=== PATIENT | male | born 1980 | race African-American/Black ===

== ENCOUNTER 2016-10-03 08:04 | Emergency (ER) | payer BC ==
[2016-10-03 08:11] VITALS: BP 147/72; PULSE 87; TEMP 98.4; BMI 26.5
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
[2016-10-03] MEDS ORDERED: IBUPROFEN 600 MG TABLET (FP) PO ONE ×2 (08:30→08:32)
== END 2016-10-03 08:37 | disposition home or self-care (01) ==
LOC: JERFT 08:04
DX: S49.91XA Unspecified injury of right shoulder and upper arm, initial encounter (principal); X50.0XXA Overexertion from strenuous movement or load, initial encounter; Y93.89 Activity, other specified; Y92.89 Other specified places as the place of occurrence of the external cause
CPT/HCPCS: 99281-25

== ENCOUNTER 2020-09-06 10:08 | Emergency (ER) | payer BC ==
[2020-09-06 10:25] VITALS: BP 127/95; PULSE 103; TEMP 98; BMI 27.3
[2020-09-06] MEDS ORDERED: IBUPROFEN 400 MG TABLET (FP) PO ONE ×2 (11:35→11:37)
== END 2020-09-06 11:44 | disposition home or self-care (01) ==
LOC: JER 10:08 → JERFT 10:08
DX: S42.142A Displaced fracture of glenoid cavity of scapula, left shoulder, initial encounter for closed fracture (principal); S42.152A Displaced fracture of neck of scapula, left shoulder, initial encounter for closed fracture
CPT/HCPCS: 73030-TC-LT-FY; 99283-25